=== PATIENT | female | born 1995 | race Two or more races ===

== ENCOUNTER 2019-07-15 19:45 | Inpatient (IN) | payer OTHER ==
[~2019-07-15] VITALS: Ht 160 cm; Wt 3.2 kg
[2019-07-15] MEDS ORDERED: PRENATAL TABLE1 EAC1 PO (21:04)
== END 2019-07-19 14:41 | disposition home or self-care (01) | DRG 788 ==
LOC: LDR 19:45 → O/R 07-16 22:20 → OB/GYN 07-16 22:51
PROVIDERS: ADMIT Obstetrics & Gynecology
PROC: 4A1HXCZ Monitoring of Products of Conception, Cardiac Rate, External Approach (ICD-10-PCS; 2019-07-15)
PROC: 3E0P7VZ Introduction of Hormone into Female Reproductive, Via Natural or Artificial Opening (ICD-10-PCS; 2019-07-16)
PROC: 3E033VJ Introduction of Other Hormone into Peripheral Vein, Percutaneous Approach (ICD-10-PCS; 2019-07-16)
PROC: 10D00Z1 Extraction of Products of Conception, Low, Open Approach (ICD-10-PCS; principal; 2019-07-16 18:00)
DX: O61.0 Failed medical induction of labor (principal); Z3A.39 39 weeks gestation of pregnancy; Z37.0 Single live birth